=== PATIENT | female | born 1970 | race Caucasian/White ===

== ENCOUNTER 2021-07-19 00:53 | Emergency (ER) | payer OTHER ==
[2021-07-19] MEDS ORDERED: NAPROSYN500 MG PO (01:32)
== END 2021-07-19 01:36 | disposition home or self-care (01) ==
LOC: ER1 00:53
DX: S63.91XA Sprain of unspecified part of right wrist and hand, initial encounter (principal); W01.0XXA Fall on same level from slipping, tripping and stumbling without subsequent striking against object, initial encounter; Y92.009 Unspecified place in unspecified non-institutional (private) residence as the place of occurrence of the external cause
CPT/HCPCS: 73110; 73130; 99283